=== PATIENT | male | born 1995 | race Caucasian/White ===

== ENCOUNTER 2023-08-24 03:08 | Emergency (ER) | payer OTHER, SELFPAY ==
[2023-08-24 03:11] VITALS: BP 146/84; PULSE 70; RESP 18; TEMP 36.7; O2SAT 96
--- NOTE | 2023-08-24 03:45 | ED.GENADULT ---
HPI - General Adult General Chief complaint: Abdominal Pain Stated complaint: constipation Time Seen by Provider: 08/24/23 03:24 History of Present Illness HPI narrative: Patient is a 28-year-old gentleman who presents emergency department with chief complaint of fecal impaction. Patient reports that he has not been able to pass stool for several days patient reports that he feels as though he needs to have a bowel movement but cannot get the stool to move. Patient reports he has tried enemas and also tried suppositories without success. Related Data Allergies Allergy/AdvReac Type Severity Reaction Status Date / Time No Known Allergies Allergy Verified 08/24/23 03:14 Review of Systems Review of Systems: A 10 system review of systems was completed on the patient and is negative except for what is stated in the HPI. Nursing and ancillary documentation was reviewed. Exam Narrative: GENERAL: Well-appearing, well-nourished, and in no acute distress. HEAD: Normocephalic, atraumatic. EYES: PERRLA and EOMI. ENT: Nares clear, no rhinorrhea or epistaxis. Mucous membranes moist. NECK: Supple. CHEST: Clear to auscultation. No respiratory distress. HEART: Regular rate and rhythm. No murmur heard. Normal peripheral pulses. ABDOMEN: Soft, nontender, nondistended, normal active bowel sounds. : Large amount of stool in the rectal vault EXTREMITIES: Normal range of motion. No edema. SKIN: Warm, dry, no rash. NEURO: No focal deficits. Alert and oriented x3. PSYCH: Normal mood and affect. Course Vital Signs Vital signs: Vital Signs Temperature 36.7 C 08/24/23 03:11 Pulse Rate 70 08/24/23 03:11 Respiratory Rate 18 08/24/23 03:11 Blood Pressure 146/84 H 08/24/23 03:11 Pulse Oximetry 96 08/24/23 03:11 Oxygen Delivery Room Air 08/24/23 03:11 Temperature 36.7 C 08/24/23 03:11 Pulse Rate 70 08/24/23 03:11 Respiratory Rate 18 08/24/23 03:11 Blood Pressure 146/84 H 08/24/23 03:11 Pulse Oximetry 96 08/24/23 03:11 Oxygen Delivery Room Air 08/24/23 03:11 Medical Decision Making Vital Signs Vital Signs: Vital Signs Temperature 36.7 C 08/24/23 03:11 Pulse Rate 70 08/24/23 03:11 Respiratory Rate 18 08/24/23 03:11 Blood Pressure 146/84 H 08/24/23 03:11 Pulse Oximetry 96 08/24/23 03:11 Oxygen Delivery Room Air 08/24/23 03:11 Temperature 36.7 C 08/24/23 03:11 Pulse Rate 70 08/24/23 03:11 Respiratory Rate 18 08/24/23 03:11 Blood Pressure 146/84 H 08/24/23 03:11 Pulse Oximetry 96 08/24/23 03:11 Oxygen Delivery Room Air 08/24/23 03:11 Discharge Plan Discharge Clinical Impression: Fecal impaction Patient Disposition: Home, Self-Care Condition: Stable Instructions: Antibiotic Form, Fecal Impaction (ED) Follow-up/Referrals: Nicolas Mcarthur MD [Physician] - UNKNOWN,DOCTOR [Primary Care Provider] - Time of Disposition: 03:58
[2023-08-24 04:13] VITALS: BP 132/72; PULSE 68; RESP 17; O2SAT 100
[2023-08-24] MEDS: MAGNESIUM CITRATE 300 ML BTL PO (04:18)
== END 2023-08-24 04:19 | disposition home or self-care (01) ==
LOC: ANHED 04:11
PROVIDERS: Emergency Provider Emergency Medicine
DX: K56.41 Fecal impaction (principal)
CPT/HCPCS: 99283; A9270